=== PATIENT | female | born 1965 | race Caucasian/White ===

== ENCOUNTER 2017-04-12 06:41 | Day surgery (SDC) | payer BC ==
[2017-04-12] VITALS (17 sets, daily range): BP systolic 147–177; BP diastolic 70–93; PULSE 58–102; RESP 16–20; Ht 167.6 cm; Wt 69.0 kg
[~2017-04-12] VITALS: Ht 167.6 cm; Wt 69.0 kg
[2017-04-12] MEDS ORDERED: CEFAZOLIN 2 GM/50 ML (PMX) 50 ML IVPB SCH (07:00)
[2017-04-12] MEDS ORDERED: SOD CHLORIDE 0.9% 1,000 ML IV SCH (07:00)
[2017-04-12] MEDS ORDERED: CEFAZOLIN 1 GM INJ ONE (07:00)
[2017-04-12] MEDS ORDERED: LISI20TA11 PO (10:14)
[2017-04-12] MEDS ORDERED: CHOL100062 PO (10:14)
[2017-04-12] MEDS ORDERED: MELO-110 PO (10:15)
[2017-04-12 10:44] LABS: ADD SCAN DIFF NO
[2017-04-12 10:49] LABS: BASOPHIL # 0.1 10^3/ul (0.0-0.1); BASOPHILS % 0.7 % (0.0-2.0); EOSINOPHILS % 0.3 % (0.0-7.0); HEMOGLOBIN 14.7 g/dl (12.0-16.0); LYMPHOCYTES # 1.7 10^3/ul (0.8-2.9); LYMPHOCYTES % 16.5 % (15.0-51.0); MEAN CORPUSCULAR HEMOGLOBIN 29.9 pg (29.0-33.0); MEAN CORPUSCULAR HGB CONC 32.7 g/dl (32.0-37.0); MEAN CORPUSCULAR VOLUME 91.5 fl (82.0-101.0); MEAN PLATELET VOLUME 9.5 fl (7.4-10.4); MONOCYTE # 0.8 10^3/ul (0.3-0.9); MONOCYTES % 7.6 % (0.0-11.0); NEUTROPHIL # 7.4 10^3/ul (1.6-7.5); NEUTROPHILS % 73.8 % (39.0-77.0); PLATELET COUNT 312 10^3/UL (140-415); RED BLOOD COUNT 4.92 10^6/ul (4.20-5.40); RED CELL DISTRIBUTION WIDTH 13.3 % (11.5-14.5)
[2017-04-12] MEDS ORDERED: HYDROCODONE/APAP (7.5/325) TAB PO PRN (11:00)
[2017-04-12] MEDS ORDERED: ACETAMINOPHEN 1000MG/100ML IV 100 ML ONE (11:07)
[2017-04-12] MEDS ORDERED: ONDANSETRON 4 MG INJ ONE (11:07)
[2017-04-12] MEDS ORDERED: LIDOCAINE 2% (SDV) 5 ML INJ ONE (11:07)
[2017-04-12] MEDS ORDERED: DEXAMETHASONE 4 MG/ML 1 ML INJ ONE (11:07)
[2017-04-12] MEDS ORDERED: MIDAZOLAM 1 MG/ML 2 ML INJ ONE (11:07)
[2017-04-12] MEDS ORDERED: FAMOTIDINE 20 MG INJ ONE (11:07)
[2017-04-12] MEDS ORDERED: PROPOFOL 20 ML ONE (11:07)
[2017-04-12 11:17] LABS: INR 0.85; PARTIAL THROMBOPLASTIN TIME 25.2 Sec (25.0-35.0); PROTIME 11.6 Sec (12.2-14.2); PT RATIO 0.9
[2017-04-12 11:29] LABS: ALBUMIN 4.9 g/dl (3.3-4.9); ALBUMIN/GLOBULIN RATIO 1.75; TOTAL PROTEIN 7.7 g/dl (6.1-8.1)
[2017-04-12 11:31] LABS: CALCIUM 9.4 mg/dl (8.4-10.2); CREATININE 0.76 mg/dl (0.44-1.00); POTASSIUM 3.6 mmol/L (3.5-5.1)
--- NOTE | 2017-04-12 11:37 | RADRPT ---
PROCEDURE: XR Chest. CLINICAL INDICATION: Preoperative, breast mass TECHNIQUE: Single frontal view of the chest was obtained COMPARISON: None FINDINGS: The heart and mediastinum are within normal limits. The lungs are clear. There are wires overlying the left breast. There is no pleural effusion or pneumothorax. RPTAT: AA IMPRESSION: No acute disease. .Alex Warren MD, MD Date Time Electronically viewed and signed by .Alex Warren MD, on 04/12/2017 11:37 .S/
[2017-04-12] MEDS ORDERED: HYDROmorphONE 2 MG/ML SYG ONE (12:43)
[2017-04-12] MEDS ORDERED: ONDANSETRON 4 MG INJ IV PRN (13:30)
[2017-04-12] MEDS ORDERED: DIPHENHYDRAMINE 50 MG INJ IV PRN (13:30)
[2017-04-12] MEDS ORDERED: FENTAnyl 50 MCG/ML VIAL IV PRN ×2 (13:30)
[2017-04-12] MEDS ORDERED: HYDROmorphONE (0.2 MG/ML) 10ML SYG IV PRN ×3 (13:30)
--- NOTE | 2017-04-12 13:48 | RADRPT ---
Vent Rate: 66 bpm RR Interval: 0 msec HI Interval: 128 msec QRS Duration: 82 msec QT Interval: 398 msec QTC Interval: 417 msec P-R-T [place]: 52 - 31 - 46 degrees Normal sinus rhythm Normal ECG Electronically Signed By: Denis Truong [id number]
--- NOTE | 2017-04-20 09:26 | OPR ---
DATE OF OPERATION: 04/12/2017 PREOPERATIVE DIAGNOSIS: Left breast lesions x2. POSTOPERATIVE DIAGNOSIS: Left breast lesions x2. OPERATIVE PROCEDURE: Needle-directed left partial mastectomies x2. ANESTHESIA: General ANESTHESIOLOGIST: Nurse diver assistant, Lay Ugalde CRNA SURGEON: Reg Agustin MD [employer] TECHNICAL DIRECTOR: Navjot Toscano MD INDICATIONS FOR PROCEDURE: The patient is a 51-year-old female who underwent surveillance mammography. She was found to have two suspicious lesions in her left breast; one centrally at approximately the 12 o'clock location and the other inferiorly at approximately the 6 o'clock location. A biopsy of the 6 o'clock lesion revealed atypia. The patient was discussed with attending, [facility] radiologist, Dr. Mackey . She recommended needle-directed excision of both lesions. The patient consented and was scheduled for surgery. DESCRIPTION OF PROCEDURE: On the morning of surgery, the patient presented to [facility]. She underwent localization of the two lesions, performed by attending radiologist, . She was subsequently brought to the operating theatre and placed under general anesthesia. The left breast was prepped and draped in the usual sterile fashion. The attention was first directed to the central lesion at 12 o'clock. A curvilinear incision was made in the region of the previously placed localization wire. Subcutaneous tissue was dissected with cautery. The skin edges were then elevated with skin hooks, and wide circumferential dissection of the tissue associated with the wire took place. The specimen was transected, oriented, sent for radiographic confirmation of capture. Capture was confirmed. The specimen was then sent for permanent pathologic analysis. The wound was irrigated. Minimal bleeding was controlled with cautery. The skin was reapproximated with a 4-0 Vicryl suture in subcuticular fashion. Attention was then directed to the 6 o'clock lesion. A curvilinear incision was made in the region of the previously placed localization wire. Subcutaneous tissue was dissected with cautery. The skin edges were then elevated with skin hooks, and wide circumferential dissection of the tissue associated with the wire took place. Specimen was then transected, oriented, sent for radiographic confirmation and capture. Capture was confirmed. The wound was irrigated. Minimal bleeding was controlled with cautery. The skin was reapproximated with a 4-0 Vicryl suture in subcuticular fashion. The second specimen was also sent for permanent pathologic analysis. The patient tolerated the procedures well. The patient was transported in stable condition to the recovery room where circumferential compression dressing was applied. ESTIMATED BLOOD LOSS: 20 mL COMPLICATIONS: There were no complications. Dictated By: Reg Agustin MD /purnima/sheela /Document#: [id number]
== END 2017-04-12 16:16 | disposition home or self-care (01) ==
LOC: SDS 06:41
PROVIDERS: ATTEND Surgery Surgical Oncology
DX: D05.12 Intraductal carcinoma in situ of left breast (principal); I10 Essential (primary) hypertension
CPT/HCPCS: 19301; 71010; 80053; 84703; 85025; 85610; 85730; 88307; 93005; J0131; J0690; J1100; J1170; J2250; J2405; J3010; Z7512; Z7610

== ENCOUNTER 2018-03-10 07:37 | Day surgery (SDC) | END 2018-03-10 19:15 | disposition home or self-care (01) ==